=== PATIENT | male | born 1970 | race Caucasian/White ===

== ENCOUNTER 2016-09-19 16:25 | Observation (INO) ==
[2016-09-19] MEDS ORDERED: GLUCAGON SUBQ ONE (17:31)
--- NOTE | 2016-09-19 17:32 | PROVIDER DOCUMENTATION ---
HPI-Abdominal Pain/GI Problem - General Chief Complaint: Foreign Body/Throat Stated Complaint: CP Time Seen by Provider: 09/19/16 17:25 Source: patient Allergies/Adverse Reactions: Patient Allergies Allergy/AdvReac Type Severity Reaction Status Date / Time No Known Allergies Allergy Verified 09/19/16 21:08 Home Medications: Home Medication List Medication Instructions Recorded Confirmed Last Taken Type Alprazolam [Xanax] 0.25 mg PO PRN PRN 05/04/16 09/19/16 09/12/16 20:00 History - History of Present Illness-ABD Nature of Presenting Problems: 45 y/o WM c/o feeling like a piece of chicken is in the epigastric or ruq. States he cannot keep anything down secondary to vomiting. Pain is constant, unless he is laying on the side. states he has had this problem multiple times before. It was boneless chicken, eating at about 1930 yesterday. states he has had this problem several times in [place] past, and this is the first time he has not been able to throw it back up. Review of Systems - Adult - REVIEW OF SYSTEMS - ADULT Constitutional: reports: no symptoms reported. denies: chills, fever, fatique Eyes: reports: no symptoms reported. denies: blurred vision, double vision, eye pain Ears, Nose, Mouth & Throat: reports: no symptoms reported. denies: ear pain, nose pain, throat pain Cardiovascular: reports: no symptoms reported. denies: chest pain Respiratory: reports: no symptoms reported. denies: cough, shortness of breath , wheezing Gastrointestinal: reports: see HPI, abdominal pain, nausea, poor appetite, vomiting. denies: diarrhea Genitourinary: reports: no symptoms reported Musculoskeletal: reports: no symptoms reported. denies: muscle aches Integumentary: reports: no symptoms reported. denies: rash Neurological: reports: no symptoms reported. denies: headache/migraines Psychiatric: reports: no symptoms reported Endocrine: reports: no symptoms reported Hematologic/Lymphatic: reports: no symptoms reported Allergic/Immunologic: reports: no symptoms reported All Other Systems: Reviewed and Negative Past History - Adult - PAST MEDICAL HISTORY-ADULT Review of Records: reports: Old Records Reviewed, Nursing Assessment Review, Medications Reviewed Major Childhood Illnesses: reports: denies history Cardiovascular: reports: denies history Respiratory: reports: denies history Gastrointestinal: reports: denies history Genitourinary: reports: denies history Musculoskeletal: reports: arthritis, other (mcl tear and repair/ acl repair left and right knees) Neurological: reports: denies history Psychiatric: reports: denies history Endocrine/Immune: reports: denies history Other Conditions: reports: denies history - PRIOR SURGERIES/PROCEDURES Surgical/Procedure History: reports: orthopedic (extremity) - IMMUNIZATION STATUS Childhood Immunizations: See Nurse Assessment Flu Vaccine: See Nurse Assessment - FAMILY HISTORY Family History: reviewed, not pertinent - SOCIAL HISTORY Smoking: denies Substance Use: none/never Alcohol Use Frequency: occasionally Living Situation: family Physical Exam-General - PHYSICAL EXAM-ADULT Initial Vital Signs Reviewed: Yes - CONSTITUTIONAL General Appearance: appears well, alert, no apparent distress - EYES Eyes: PERRL/EOMI, pink conjunctivae - HEAD, EARS, NOSE, MOUTH & THROAT HENMT: normocephalic/atraumatic, moist mucous membranes - NECK Neck: normal inspection - RESPIRATORY Respiratory: chest non-tender, lungs clear, normal breath sounds, no pleuratic chest pain, no respiratory distress, no accessory muscle use. negative: respiratory distress, decreased breath sounds, accessory muscle use, crackles, rales, rhonchi, wheezing - CARDIOVASCULAR Cardiovascular: normal peripheral pulses, regular rate, rhythm - GASTROINTESTINAL (ABDOMEN) Abdominal Exam: normal bowel sounds, soft, no organomegaly, no pulsatile mass, tenderness (epigastric) - MUSCULOSKELETAL Extremity: normal gait - SKIN Integumentary: normal color, normal turgor, warm/dry - NEUROLOGIC Neurologic: grossly normal, no motor/sensory deficits - PSYCHIATRIC Psych/Mental Status: normal mood/affect, normal thought content, normal thought process, oriented x 3 Progress - PLAN OF CARE/RESULTS Progress/Plan/Lab Results: I discussed the patient with Dr. christianson upon receiving the K level. Dr. Christianson stated only to give Kayexalate, no Ca Gluconate, insulin/glucose. Vital Signs Temp Pulse Resp BP Pulse Ox 09/19/16 21:39 99 H 20 164/100 99 09/19/16 16:51 98.1 F 102 H 18 162/104 98 No Known Allergies Allergy (Verified 09/19/16 21:08) Alprazolam [Xanax] 0.25 mg PO PRN PRN 05/04/16 Laboratory 09/19/16 09/19/16 18:45 18:45 WBC 10.56 RBC 4.74 Hgb 14.8 Hct 42.3 MCV 89.2 MCH 31.2 H MCHC 35.0 RDW Std Deviation 12.3 Plt Count 251 MPV 10.6 H Immature Gran % (Auto) 0.5 Neut % (Auto) 73.1 Lymph % (Auto) 15.8 L Gladwin % (Auto) 8.0 Eos % (Auto) 2.2 Baso % (Auto) 0.4 Immature Gran # (Auto) 0.05 H Neut # (Auto) 7.72 H Lymph # (Auto) 1.67 Gladwin # (Auto) 0.85 H Eos # (Auto) 0.23 Baso # (Auto) 0.04 Sodium 142 Potassium 3.6 Chloride 100 Carbon Dioxide 27 Anion Gap 15 BUN 10 Creatinine 0.8 Estimated GFR/1.73 m2 > 60 BUN/Creatinine Ratio 13 Glucose 112 H Calculated Osmolality 283 Calcium 9.9 Total Bilirubin 0.99 AST 35 H ALT 44 Alkaline Phosphatase 96 Total Protein 8.5 H Albumin 4.9 Globulin 3.6 Albumin/Globulin Ratio 1.4 Orders Category Date Time Status Admit - [facility] Routine AdmDCTranf 09/19/16 23:06 Ordered Activity - Up with Assistance ORDERED Care 09/19/16 23:06 Active Apply Mechanical Device [QM] ORDERED Care 09/19/16 23:06 Active Intake and Output-Strict ORDERED Care 09/19/16 23:06 Active Nursing- MD Consult Request ROUTINE Care 09/19/16 23:06 Active Saline Loc NOW Care 09/19/16 17:29 Active Vital Signs Order Q6-HR ASSESS Care 09/19/16 23:06 Active Physician/Provider Consults Routine Cons 09/20/16 07:00 Ordered CHEST-2 VIEWS [RAD] Stat Exams 09/19/16 16:54 Completed THORAX/ABDOMEN [CT] Stat Exams 09/19/16 19:23 Taken CBC WITH ELECTRONIC DIFF [HEME] Stat Lab 09/19/16 18:45 Completed CMP [COMPREHENSIVE METABOLIC PANEL] [CHEM] Stat Lab 09/19/16 18:45 Completed 0.9% Sodium Chloride Inj [Ns] 1,000 ml Med 09/19/16 22:02 Active IV 125 mls/hr 0.9% Sodium Chloride Inj [Ns] 1,000 ml Med 09/19/16 17:33 Discontinued IV 999 mls/hr Glucagon Med 09/19/16 17:31 Discontinued 1 mg SUBQ NOW ONE Lorazepam [Ativan] Med 09/19/16 22:56 Discontinued 1 mg IV NOW ONE Lorazepam [Ativan] Med 09/19/16 23:10 Discontinued 2 mg .ROUTE .STK-MED ONE Meperidine [Demerol] Med 09/19/16 23:09 Discontinued 25 mg .ROUTE .STK-MED ONE Meperidine [Demerol] Med 09/19/16 22:56 Discontinued 25 mg IV NOW ONE Ondansetron [Zofran] Med 09/19/16 23:06 Active 4 mg IV Q4H PRN PRN Pantoprazole [Protonix] Med 09/19/16 22:15 Active 40 mg IV Q12H Sodium Chloride 0.9% Med 09/19/16 22:15 Discontinued 10 ml INJ DIRECTED Water, Sterile Inj [Sterile Water Inj] Med 09/19/16 20:55 Discontinued 10 ml .ROUTE .STK-MED ONE EGD, Esophagogastroduodenoscopy [OM.ENDO] Timed Oth 09/20/16 07:00 Active Telemetry [OM.EQ] Routine Oth 09/19/16 23:06 Active Transfer/Admit Order [TRANSFER] Routine Transfer 09/19/16 22:57 Completed - CT/MRI 1 CT Study: Abdomen, Thorax Impression: Abnormal (Esophagus is distended with debris from the thoracic inlet to the GE junction. Lungs clear,no effusions, Fatty liver.) - CONSULTS/PCP/HOSPITALIST Notification #1 *Consult/PCP/Hospitalist*: Dr. Holder, GI Time Discussed: 22:03 Reason/Comments: food bolus impation in esophagus Consult Disposition: Admit (Admit to hospitalist. EGD at [address] Fabian tomorrow, protonix 40 mg BID IV and fluids) #2 Consult: Dr. Staley, hospitalist Time Discussed: 22:07 Reason/Comments: see above Consult Disposition: Admit Departure - Departure Time of Disposition Order: 21:53 DIAGNOSIS: Esophageal obstruction due to food impaction Disposition: ADMITTED INPATIENT 09 Certified Medical Emergency: Emergent Condition: Stable Referrals: None,PCP [Primary Care Provider] - Attestation - Physician/ ROJELIO Attestation Patient care was provided by Advanced Practice Provider:: Yes Advanced Practice Provider:: Darcie Mccormack Advanced Practice Provider documentation review:: The Mid-level provider documentation, treatment plan and medical decision making was reviewed by the physician who agrees with all treatment and medical decision making by the MLP.
[2016-09-19] MEDS ORDERED: NS 1,000 ML IV ONE ×2 (17:33→22:02)
[2016-09-19 18:55] LABS: MANUAL DIFF NEEDED? NO
[2016-09-19 19:03] LABS: BASO% 0.4 % (0.0-0.8); EOS# 0.23 X1000 (0.0-0.7); EOS% 2.2 % (0.0-10.0); HEMATOCRIT 42.3 % (42.0-52.0); HEMOGLOBIN 14.8 g/dL (14.0-18.0); IMM GRAN# 0.05 X1000 (0.0-0.04); IMM GRAN% 0.5 % (0.0-0.5); LYMPH# 1.67 X1000 (1.2-3.4); LYMPH% 15.8 % (20.5-51.1); MCH 31.2 PG (27-31); MCV 89.2 FL (81-99); MONO# 0.85 X1000 (0.11-0.59); MPV 10.6 FL (7.4-10.4); NEUT% 73.1 % (42.2-75.2); PLT 251 X1000 (130-400); RBC 4.74 XMIL (4.7-6.1)
[2016-09-19 19:17] LABS: AGAP 15; ALBUMIN 4.9 g/dL (3.5-5.0); ALKALINE PHOSPHATASE 96 U/L (32-122); BUN 10 mg/dL (8-22); CALCIUM 9.9 mg/dL (8.8-10.2); CHLORIDE 100 mmol/L (98-107); COSMO 283; GOT 35 U/L (10-34); GPT 44 U/L (10-44); POTASSIUM 3.6 mmol/L (3.5-5.1); SODIUM 142 mmol/L (136-145); TCO2 27 mmol/L (25-35); TOTAL BILIRUBIN 0.99 mg/dL (0.20-1.00); TOTAL PROTEIN 8.5 g/dL (6.3-8.3)
--- NOTE | 2016-09-19 20:09 | Diag Imaging Result Document ---
PROCEDURE NAME: CHEST-2 VIEWS - 09/19/2016 FRONTAL AND LATERAL CHEST, 2 VIEWS FINDINGS: The lungs are well expanded. The heart is not enlarged. The vessels are not distended. No pneumonia. No pleural effusions. No foreign body is seen. IMPRESSION: I do not identify a foreign body.
[2016-09-19] MEDS ORDERED: STERILE WATER INJ. ONE (20:55)
[2016-09-19] MEDS ORDERED: SODIUM CHLORIDE 0.9% INJ SCH (22:15)
[2016-09-19] MEDS: PROTONIX IV SCH (22:44)
[2016-09-19] MEDS ORDERED: DEMEROL IV ONE (22:56)
[2016-09-19] MEDS ORDERED: ATIVAN IV ONE (22:56)
[2016-09-19] MEDS ORDERED: ZOFRAN IV PRN (23:06)
[2016-09-19] MEDS ORDERED: DEMEROL ONE (23:09)
[2016-09-19] MEDS ORDERED: ATIVAN ONE (23:10)
--- NOTE | 2016-09-20 01:10 | Diag Imaging Result Document ---
PROCEDURE NAME: THORAX/ABDOMEN - 09/19/2016 STUDY: CT chest and abdomen with intravenous contrast. CHEST WITH CONTRAST: COMPARISON: No comparison films. No pleural effusions. No thoracic aortic aneurysm or dissection. Normal opacification of the pulmonary arteries and the proximal main branches. No enlarged mediastinal or hilar lymph nodes. There are no infiltrates. No bronchiectasis. No lung mass. Normal trachea and mainstem bronchi. The esophagus is distended and filled with debris from the thoracic inlet to the GE junction. No radiopaque foreign body. IMPRESSION: Distended esophagus filled with debris. ABDOMEN WITH INTRAVENOUS CONTRAST: COMPARISON: Compared to 05/04/2016. The liver is prominent. There is diffuse fatty infiltration. The spleen is borderline mildly prominent. Normal pancreas, adrenal glands, and gallbladder. Normal enhancement of the kidneys. No hydronephrosis. No aortic aneurysm. Mild atherosclerosis. No foreign body within the stomach identified. The stomach is not overly distended. The bowel loops are not distended. There are scattered colonic diverticula. IMPRESSION: 1. Hepatomegaly with fatty infiltration. 2. Diverticulosis. A preliminary report was given at 9:28 p.m.
[2016-09-20] MEDS ORDERED: NS 1,000 ML ONE (07:05)
--- NOTE | 2016-09-20 08:57 | HISTORY AND PHYSICAL ---
PRIMARY CARE PROVIDER: There is no primary care provider. CHIEF COMPLAINT: Food stuck in throat. HISTORY OF PRESENT ILLNESS: This is a pleasant, 45-year-old male who states that he was eating boneless chicken around 1930 for dinner yesterday evening and it was stuck in his throat. He was not able to throw it back up or swallow it. He began having pain in his chest related to this. He states that he has had this episode multiple times in the past but this is the 1st time he has been unable to correct the problem by vomiting. He has been unable to keep anything else down from vomiting. Pain is a 7/10, constant unless he is laying on his left side. He denies other past medical history other than GERD. He denies other factors such as diarrhea, weight gain, weight loss, dizziness, headache, cardiac chest pain, dysuria, hematemesis, hematuria, hematochezia, melena. CT scan was completed in the emergency room and that showed a distended esophagus filled with debris. It was of the thorax and abdomen. It also noted hepatomegaly with fatty infiltration, diverticulosis. He will be admitted for further evaluation and treatment. PAST MEDICAL HISTORY: GERD. PAST SURGICAL HISTORY: 1. MCL/ACL left and right knee. 2. Appendectomy. SOCIAL HISTORY: Lives at home with his . Denies tobacco, alcohol or illicit drug use or abuse. 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 FAMILY HISTORY: Patient denies any chronic health issues. States that his parents are still living and both healthy. ALLERGIES: No known drug allergies. HOME MEDICATIONS: Generic Zantac daily. REVIEW OF SYSTEMS: Fourteen point review of systems conducted with the patient. Pertinent positives listed above in the HPI. PHYSICAL EXAMINATION: VITAL SIGNS: Temp 102 degrees, respirations 20, blood pressure 141/85, oxygen saturation 100% on room air. GENERAL: Pleasant, 45-year-old male in mild distress related to pain. No acute respiratory distress. Answers all questions appropriately. Alert and oriented x4. HEENT: Head is atraumatic, normocephalic. Pupils equal, round, reactive to light. Extraocular eye movement intact. Sclerae is anicteric. Conjunctivae pink. Oral mucosa is moist. NECK: Supple. No JVD. No thyromegaly. Trachea is midline. No cervical lymphadenopathy. CARDIAC: Regular rhythm. S1, S2 appreciated. No murmurs, gallops, rubs. LUNGS: Clear to auscultation bilaterally. No rhonchi, wheezes, or rales. ABDOMEN: Soft, nondistended, nontender. Bowel sounds present in all 4 quadrants. Normoactive. No pulsatile mass. No organomegaly. EXTREMITIES: No clubbing, cyanosis, or edema. There are 2+ pedal pulses. GENITOURINARY: The patient voids, otherwise deferred. NEUROLOGICAL: Alert and oriented x3. Cranial nerves 2 through 12 grossly intact. SKIN: Warm, dry, and intact. Multiple tattoos noted. DIAGNOSTIC DATA: CT of the thorax and abdomen showed a dilated esophagus with debris. The abdomen noted hepatomegaly with fatty infiltration. LABORATORY DATA: CBC within normal limits. Chemistry panel grossly normal. Glucose 112. AST is 35. ASSESSMENT AND PLAN: 1. Foreign body in the esophagus. Patient swallowed chicken and was unable to regurgitate it. He was given a glucagon 1 mg subcutaneously in the ER, Demerol 25 mg, and Ativan 1 mg IV. This did not relax him enough to where the food came back out. He will be given Protonix 40 mg IV q.12 hours, Zofran 4 mg IV q.[address] Fabian has been consulted. 2. Gastroesophageal reflux disease. Protonix has been given q.12. Will continue the patient's normal outpatient treatment when he is available to take p.o. 3. Fatty infiltration of the liver with mildly elevated liver enzymes. Aware. Dictated by VENKAT Goodman for Kevin Staley MD
[2016-09-20] MEDS: PROTONIX IV SCH (10:05)
[2016-09-20] MEDS ORDERED: NS 1,000 ML IV SCH (12:45)
[2016-09-20] MEDS ORDERED: MYLICON DROPS (DOSE) MISC ONE (13:05)
[2016-09-20] MEDS ORDERED: DIPRIVAN 1% ONE (14:19)
[2016-09-20] MEDS ORDERED: VERSED ONE (14:19)
[2016-09-20] MEDS ORDERED: ROBINUL ONE (14:51)
[2016-09-20] MEDS ORDERED: ANESTHESIA PB SET 88 IN 5742 ONE (14:51)
[2016-09-20] MEDS ORDERED: XYLOCAINE-MPF 2% ONE (14:51)
[2016-09-20] MEDS ORDERED: LR 1,000 ML ONE (14:51)
[2016-09-20] MEDS ORDERED: CARAFATE PO SCH (16:00)
[2016-09-20 16:03] VITALS: BP 122/86
--- NOTE | 2016-09-20 17:58 | OPERATIVE NOTE ---
PROCEDURE DATE : 09/20/2016 PROCEDURE: Esophagogastroduodenoscopy and foreign body removal. PREOPERATIVE DIAGNOSIS: Foreign body impaction. POSTOPERATIVE DIAGNOSIS: Foreign body impaction, removed, moderately severe esophagitis with stricture. DESCRIPTION OF PROCEDURE: After informed consent, adequate sensation by Anesthesia, the scope was introduced into the esophagus. Meat impacted in the distal esophagus was removed. Part of it washed down and part of it aspirated. Patient has severe esophagitis with stricture. The stomach itself is normal. The scope was withdrawn. Will treat him aggressively for the next 4 weeks and do esophageal dilation.
== END 2016-09-20 19:35 | disposition home or self-care (01) ==
LOC: ED 16:25 → INTOOBSV 09-20 00:07 → 3N 09-20 00:07
PROVIDERS: ATTEND Internal Medicine
DX: T18.128A Food in esophagus causing other injury, initial encounter (principal); K22.2 Esophageal obstruction; K20.9 Esophagitis, unspecified; R74.8 Abnormal levels of other serum enzymes; K76.0 Fatty (change of) liver, not elsewhere classified; K21.9 Gastro-esophageal reflux disease without esophagitis; K57.90 Diverticulosis of intestine, part unspecified, without perforation or abscess without bleeding; R10.13 Epigastric pain; R10.11 Right upper quadrant pain; R11.10 Vomiting, unspecified; M19.90 Unspecified osteoarthritis, unspecified site; Z79.899 Other long term (current) drug therapy; F17.220 Nicotine dependence, chewing tobacco, uncomplicated
CPT/HCPCS: 71020; 71260; 74160; 80053; 85025; C9113; J1610; J2060; J2175; J2250; J7030; J7120; Q9966; S0164